=== PATIENT | male | born 1995 | race African-American/Black ===

== ENCOUNTER 2019-01-12 07:00 | Emergency (ER) | payer OTHER ==
[~2019-01-12] VITALS: Ht 175.3 cm; Wt 118.2 kg
[2019-01-12] MEDS ORDERED: CYCLOBENZAPRINE 10 MG TAB PO ONE (07:30)
[2019-01-12] MEDS ORDERED: IBUPROFEN 600 MG TAB PO ONE (07:30)
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
[2019-01-12] MEDS ORDERED: CYCL10TA PO (08:22)
[2019-01-12 08:27] VITALS: BP 124/76
== END 2019-01-12 08:29 | disposition home or self-care (01) ==
LOC: M ED 07:00
DX: Z04.1 Encounter for examination and observation following transport accident (principal); S10.93XA Contusion of unspecified part of neck, initial encounter; V47.5XXA Car driver injured in collision with fixed or stationary object in traffic accident, initial encounter; Y92.410 Unspecified street and highway as the place of occurrence of the external cause; Y93.89 Activity, other specified; Y99.8 Other external cause status

== ENCOUNTER 2019-03-27 15:09 | Emergency (ER) | payer OTHER ==
[~2019-03-27] VITALS: Ht 180.3 cm; Wt 127.3 kg
[~2019-03-27 15:09] MED LIST: CYCL10TA PO
[2019-03-27 15:14] VITALS: BP 134/63
[2019-03-27] MEDS ORDERED: predniSONE 20 MG TAB PO ONE (16:15)
[2019-03-27 16:41] LABS: BASO % 0.7 % (0.0-1.0); EOS # 0.2 10^3/uL (0.0-0.5); EOS % 2.6 % (0.0-3.0); HEMATOCRIT 46.8 % (42.0-52.0); HEMOGLOBIN 15.6 g/dl (13.5-17.5); LYMPH # 2.2 10^3/uL (1.5-5.0); LYMPH % 37.6 % (24.0-44.0); MEAN CORPUSCULAR HEMOGLOBIN 29.1 pg (27.0-33.0); MEAN CORPUSCULAR HGB CONC 33.3 g/dl (32.0-36.5); MEAN CORPUSCULAR VOLUME 87.3 fl (80.0-96.0); MONO # 0.5 10^3/uL (0.0-0.8); MONO % 8.4 % (0.0-5.0); NEUTROPHILS % 50.5 % (36.0-66.0); PLATELET COUNT, AUTOMATED 267 10^3/uL (150-450); RED BLOOD COUNT 5.36 10^6/uL (4.30-6.10); WHITE BLOOD COUNT 5.8 10^3/uL (4.0-10.0)
[2019-03-27] MEDS ORDERED: PRED20TA PO (16:48)
== END 2019-03-27 17:21 | disposition home or self-care (01) ==
LOC: M ED 15:09
DX: R21 Rash and other nonspecific skin eruption (principal); Z91.010 Allergy to peanuts